=== PATIENT | male | born 1950 | race Caucasian/White ===

== ENCOUNTER 2023-02-26 05:33 | Day surgery (SDC) | payer OTHER ==
[2023-02-24 11:14] LABS: BASOPHILS # (AUTO) 0.04 K/uL (0.00-0.20); BASOPHILS % (AUTO) 0.7 % (0.0-5.0); EOSINOPHILS # (AUTO) 0.07 K/uL (0.00-0.70); EOSINOPHILS % (AUTO) 1.1 % (0.0-8.0); HEMATOCRIT 40.1 % (42-54); IMMATURE GRANULOCYTE ABSOLUTE 0.01 K/uL (0-1); LYMPHOCYTES # (AUTO) 1.3 K/uL (1.0-4.8); LYMPHOCYTES % (AUTO) 20.4 % (21.0-51.0); MEAN CORPUSCULAR HEMOGLOBIN 33.1 pg (27.0-33.0); MEAN CORPUSCULAR HGB CONC 33.9 g/dL (32.0-36.0); MEAN CORPUSCULAR VOLUME 97.6 fL (79-99); MONOCYTES # (AUTO) 0.5 K/uL (0.1-1.0); MONOCYTES % (AUTO) 8.3 % (3.0-13.0); NEUTROPHILS # (AUTO) 4.3 K/uL (1.8-7.7); NEUTROPHILS % (AUTO) 69.3 % (40.0-77.0); PLATELET COUNT (AUTO) 167 K/uL (130-400); RED BLOOD CELL COUNT(AUTO) 4.11 MIL/uL (4.50-6.20); RED CELL DISTRIBUTION WIDTH 12.9 % (11.0-15.5); WHITE BLOOD COUNT (AUTO) 6.1 K/uL (4.8-10.8)
[2023-02-24 11:26] LABS: ALBUMIN 3.6 g/dL (3.5-5.0); CARBON DIOXIDE 29 mmol/L (21-32); CHLORIDE 105 mmol/L (101-111); CREATININE 0.8 mg/dL (0.5-1.5); GLOMERULAR FILTR. RATE CALC 95 mL/min (>90); GLUCOSE,RANDOM 106 mg/dL (70-105); POTASSIUM 4.2 mmol/L (3.5-5.1); SODIUM SERUM 142 mmol/L (136-145); UREA NITROGEN, BLOOD 11 mg/dL (7-18)
[2023-02-24 11:28] LABS: CRP QUANTITATIVE < 2.00 mg/L (0.00-9.0)
[2023-02-24 11:55] VITALS: BP 170/88; PULSE 64; RESP 18
[~2023-02-26] VITALS: Ht 170.2 cm; Wt 109.2 kg
[2023-02-26] VITALS (13 sets, daily range): BP systolic 96–134; BP diastolic 49–68; PULSE 50–61; RESP 15–16
[~2023-02-26 05:33] MED LIST: AEC81 PO; ATOR40TA69 PO; CARV25TA PO; CHOL500062 PO; EZET10TA48 PO; LOSA25TA41 PO; MULT-1367 PO
[2023-02-26] MEDS ORDERED: LACTATED RINGERS 1000ML 1,000 ML IV ONE (06:24)
[2023-02-26] MEDS ORDERED: CEFAZOLIN SODIUM 2 GM VIAL ONE (06:24)
[2023-02-26] MEDS ORDERED: PHENYLEPHRINE HCL 10 MG/ML 1ML VIAL IV ONE (06:45)
[2023-02-26] MEDS ORDERED: MIDAZOLAM HCL 1 MG/ML 2ML VIAL ONE (06:57)
[2023-02-26] MEDS ORDERED: PROPOFOL 10 MG/ML 20ML VIAL IV ONE ×2 (06:57→07:41)
[2023-02-26] MEDS ORDERED: FENTANYL CITRATE PF 50 MCG/1 ML 2ML VIAL ONE ×2 (06:57→07:44)
[2023-02-26] MEDS ORDERED: KETAMINE 50MG/ML SYRINGE 50 MG/ML DISP.SYRIN ONE (07:07)
[2023-02-26] MEDS ORDERED: LIDOCAINE HCL-MPF 0.5% 50ML VIAL IJ ONE (07:07)
[2023-02-26] MEDS ORDERED: NICARDIPINE 25MG INJ IV ONE (07:11)
[2023-02-26] MEDS ORDERED: GLYCOPYRROLATE 1 MG/5 ML SYRINGE ONE (07:40)
[2023-02-26] MEDS ORDERED: BUPIVACAINE/PF 0.5% 30ML VIAL INJ ONE (07:45)
[2023-02-26] MEDS ORDERED: BUPIVACAINE/PF 0.5% 30ML VIAL ONE (07:52)
[2023-02-26] MEDS ORDERED: ACET-2079 PO (08:13)
== END 2023-02-26 09:15 | disposition home or self-care (01) ==
LOC: DAH 05:33
PROVIDERS: ATTEND Student in an Organized Health Care Education/Training Program
DX: M65.332 Trigger finger, left middle finger (principal); I10 Essential (primary) hypertension; I25.10 Atherosclerotic heart disease of native coronary artery without angina pectoris; I44.0 Atrioventricular block, first degree; G47.30 Sleep apnea, unspecified; E78.5 Hyperlipidemia, unspecified; E11.9 Type 2 diabetes mellitus without complications; Z79.899 Other long term (current) drug therapy; Z98.890 Other specified postprocedural states; Z82.49 Family history of ischemic heart disease and other diseases of the circulatory system; Z79.82 Long term (current) use of aspirin
CPT/HCPCS: 82040; 80048; 85025; 84134; 86140; 36415; 93005; 26055; 82948; A4663; J7120; J3010 ×2; J3490 ×6; J2250; J2704 ×2; J2371; J0690; A6223; A4930 ×2; A5120; A4215; A4222; A4221; A4223 ×2

== ENCOUNTER 2023-10-26 07:16 | Day surgery (SDC) | payer OTHER ==
[2023-10-22 11:55] LABS: BASOPHILS # (AUTO) 0.06 K/uL (0.00-0.20); EOSINOPHILS % (AUTO) 1.6 % (0.0-8.0); HEMATOCRIT 40.2 % (42-54); IMMATURE GRANULOCYTE ABSOLUTE 0.02 K/uL (0-1); LYMPHOCYTES # (AUTO) 1.5 K/uL (1.0-4.8); LYMPHOCYTES % (AUTO) 23.6 % (21.0-51.0); MEAN CORPUSCULAR HEMOGLOBIN 33.3 pg (27.0-33.0); MEAN CORPUSCULAR HGB CONC 34.1 g/dL (32.0-36.0); MEAN CORPUSCULAR VOLUME 97.6 fL (79-99); MONOCYTES # (AUTO) 0.7 K/uL (0.1-1.0); MONOCYTES % (AUTO) 11.2 % (3.0-13.0); NEUTROPHILS # (AUTO) 3.9 K/uL (1.8-7.7); NEUTROPHILS % (AUTO) 62.3 % (40.0-77.0); PLATELET COUNT (AUTO) 163 K/uL (130-400); RED BLOOD CELL COUNT(AUTO) 4.12 MIL/uL (4.50-6.20); RED CELL DISTRIBUTION WIDTH 13.2 % (11.0-15.5); WHITE BLOOD COUNT (AUTO) 6.3 K/uL (4.8-10.8)
[2023-10-22 12:14] LABS: CREATININE 0.9 mg/dL (0.5-1.3); POTASSIUM 4.6 mmol/L (3.5-5.1)
[2023-10-22 12:22] VITALS: BP 145/78; PULSE 59; RESP 16
[2023-10-26] VITALS (15 sets, daily range): BP systolic 129–169; BP diastolic 67–83; PULSE 55–59; RESP 13–17
[~2023-10-26] VITALS: Ht 170.2 cm; Wt 114.2 kg
[~2023-10-26 07:16] MED LIST changes: +ACET-2079 PO; +CEPH500T PO; -CHOL500062 PO; -LOSA25TA41 PO; +LOSA50TA64 PO
[2023-10-26] MEDS: 0.9%NACL 1000ML 1,000 ML IV ONE (08:11)
[2023-10-26] MEDS: OXYMETAZOLINE HCL SPRAY 15 ML BOTTLE EN ONE (08:12)
[2023-10-26] MEDS ORDERED: EPINEPHRINE 1 MG/ML 30ML VIAL IJ ONE (08:45)
[2023-10-26] MEDS ORDERED: NEOMY SULF/BACITRAC ZN/POLY OINT 30GM TUBE TP ONE (08:45)
[2023-10-26] MEDS ORDERED: LIDOCAINE 1%-EPI 1:100,000 20 ML VIAL ONE (08:46)
[2023-10-26] MEDS ORDERED: OXYMETAZOLINE HCL SPRAY 15 ML BOTTLE ONE (08:51)
[2023-10-26] MEDS ORDERED: ACETAMINOPHEN 1,000 MG/100 ML VIAL IV ONE (09:01)
[2023-10-26] MEDS ORDERED: FAMOTIDINE 20MG VIAL IV ONE (09:01)
[2023-10-26] MEDS ORDERED: ROCURONIUM BROMIDE 10MG/1ML 5ML VL ONE ×2 (09:05→09:50)
[2023-10-26] MEDS ORDERED: PROPOFOL 10 MG/ML 20ML VIAL IV ONE (09:05)
[2023-10-26] MEDS ORDERED: LIDOCAINE PF 100MG/5ML (2%) SYRINGE 5ML ONE (09:05)
[2023-10-26] MEDS ORDERED: FENTANYL CITRATE PF 50 MCG/1 ML 2ML VIAL ONE (09:06)
[2023-10-26] MEDS ORDERED: DEXAMETHASONE SOD PHOSPHATE 10MG/ML 1ML VIAL ONE (09:28)
[2023-10-26] MEDS ORDERED: ONDANSETRON 4MG INJ ONE (09:28)
[2023-10-26] MEDS: LIDOCAINE HCL/EPINEPHRINE 50 ML VIAL IJ ONE (09:34)
[2023-10-26] MEDS ORDERED: SUGAMMADEX SODIUM 200 MG/2 ML VIAL IV ONE (09:55)
== END 2023-10-26 11:53 | disposition home or self-care (01) ==
LOC: DAH 07:16
PROVIDERS: ATTEND Otolaryngology Plastic Surgery within the Head & Neck
DX: J30.89 Other allergic rhinitis (principal); J32.2 Chronic ethmoidal sinusitis; J32.0 Chronic maxillary sinusitis; J34.2 Deviated nasal septum; J34.89 Other specified disorders of nose and nasal sinuses; J34.3 Hypertrophy of nasal turbinates; G47.33 Obstructive sleep apnea (adult) (pediatric); Z82.49 Family history of ischemic heart disease and other diseases of the circulatory system; Z82.5 Family history of asthma and other chronic lower respiratory diseases; Z83.79 Family history of other diseases of the digestive system; Z80.1 Family history of malignant neoplasm of trachea, bronchus and lung; Z80.8 Family history of malignant neoplasm of other organs or systems; Z79.82 Long term (current) use of aspirin; Z98.890 Other specified postprocedural states
CPT/HCPCS: 80048; 85025; 36415; 93005; 31254; 31256; 30520; 30140; 82948 ×2; 88300; 88311; 88305; A6260; A4663; J7030 ×2; J3490 ×4; J3010; J1100; J0171 ×2; J2001; J2704; J2405; A4649; A4215 ×2; A4223; A4222; A4221